=== PATIENT | male | born 1950 | race Caucasian/White ===

== ENCOUNTER → 2016-11-26 | Outpatient (REF) | payer BC ==
[~2016-11-26] MED LIST: /MOXI40TA; /PANT40TA OR; /TAMS4CA OR; ALDA25TA2; ALPHA-LIPOIC ACID; ASPI1TAB PO; AVOD0.5C PO; BABY81CH; COQ-10 PO; COQ-1CAP PO; COZA25TA8 PO; DHEA PO; ECOT325T5; FLAX SEED PO; FLAX10005 PO; FOLI1TAB; INSULIN; INSULIN 70/30 SC; LASI40TA PO; LIPI80TA PO; LOPR50TA OR; LOSA100T36 PO; MAGN1TAB25 PO; METO50TA2 PO; NITR0.4S SL; NITR4TASL SL; NORC5TAB PO; NOVO70VL SC; PEPC1TAB4 PO; PERC5TAB8; PLAV75TA2 OR; SAWPOW; SENN8.6T5; THERGRAN PO; VITA10002 PO; VITAMIN B12 PO; VITMTA PO; [UNRECOGNIZED DRUG - CODE] EXT; [UNRECOGNIZED DRUG - OTHER]; [UNRECOGNIZED DRUG - OTHER]; [UNRECOGNIZED DRUG - OTHER]; [UNRECOGNIZED DRUG - OTHER] PO
[2016-11-26 16:04] LABS: ALBUMIN 3.9 GM/DL (3.2-5.2); ALBUMIN/GLOBULIN RATIO 1.11 (1.00-1.93); ALKALINE PHOSPHATASE 85 U/L (45-117); ALT/SGPT 57 U/L (12-78); ANION GAP 9 MEQ/L (8-16); AST/SGOT 39 U/L (15-37); BILIRUBIN,TOTAL 1.2 MG/DL (0.2-1.0); BLOOD UREA NITROGEN 25 MG/DL (7-18); CALCIUM LEVEL 9.4 MG/DL (8.8-10.2); CARBON DIOXIDE LEVEL 26 MEQ/L (21-32); CHLORIDE LEVEL 104 MEQ/L (98-107); CHOLESTEROL LEVEL 212 MG/DL (<200); CREATININE FOR GFR 1.39 MG/DL (0.70-1.30); GLOMERULAR FILTRATION RATE 54.6 (>49); GLUCOSE, FASTING 278 MG/DL (80-110); POTASSIUM SERUM 4.5 MEQ/L (3.5-5.1); SODIUM LEVEL 139 MEQ/L (136-145); TOTAL PROTEIN 7.4 GM/DL (6.4-8.2); TRIGLYCERIDES LEVEL 485 MG/DL (<150)
== END ==
LOC: M SFHCLACO 11:13
PROVIDERS: ATTEND Physician Assistant
DX: I10 Essential (primary) hypertension (principal); E78.2 Mixed hyperlipidemia; E11.65 Type 2 diabetes mellitus with hyperglycemia; E03.9 Hypothyroidism, unspecified

== ENCOUNTER → 2017-02-04 | Outpatient (REF) | payer BC | LOC: M SFHCLACO 10:50 | PROVIDERS: ATTEND Physician Assistant | DX: I10 Essential (primary) hypertension (principal); E78.2 Mixed hyperlipidemia; E11.65 Type 2 diabetes mellitus with hyperglycemia; E03.9 Hypothyroidism, unspecified; E55.9 Vitamin D deficiency, unspecified ==

== ENCOUNTER → 2017-07-31 | Outpatient (REF) | payer BC ==
[~2017-07-31] MED LIST changes: -METO50TA2 PO; +METO50TA7 PO; +NORC1TAB4 PO; -NORC5TAB PO
[2017-07-31 16:35] LABS: ALBUMIN 3.4 GM/DL (3.2-5.2); ALBUMIN/GLOBULIN RATIO 1.13 (1.00-1.93); BILIRUBIN,TOTAL 0.9 MG/DL (0.2-1.0); CALCIUM LEVEL 9.4 MG/DL (8.8-10.2); CREATININE FOR GFR 1.42 MG/DL (0.70-1.30); GLOMERULAR FILTRATION RATE 53.1 (>49); POTASSIUM SERUM 4.7 MEQ/L (3.5-5.1); TOTAL PROTEIN 6.4 GM/DL (6.4-8.2)
== END ==
LOC: M SFHCLACO 10:30
PROVIDERS: ATTEND Physician Assistant
DX: I10 Essential (primary) hypertension (principal); E78.2 Mixed hyperlipidemia; E11.65 Type 2 diabetes mellitus with hyperglycemia; Z86.19 Personal history of other infectious and parasitic diseases; R10.13 Epigastric pain; E03.9 Hypothyroidism, unspecified; E55.9 Vitamin D deficiency, unspecified

== ENCOUNTER 2017-10-03 03:33 | Inpatient (IN) | payer BC, MEDICARE ==
[~2017-10-03] VITALS: Ht 177.8 cm; Wt 111.2 kg
[2017-10-03] MEDS ORDERED: ASPI1TAB PO (03:53)
[2017-10-03] MEDS ORDERED: OMEP40CA2 PO (03:53)
[2017-10-03] MEDS ORDERED: AMOX500C PO (03:53)
[2017-10-03] MEDS ORDERED: NIAS1TAB PO (03:53)
[2017-10-03] MEDS ORDERED: MORPHINE 4 MG/ML 1ML SYRINGE IV ONE (04:45)
[2017-10-03] MEDS ORDERED: NS 500 ML IV ONE (04:45)
[2017-10-03] MEDS ORDERED: METOCLOPRAMIDE INJ 10MG/2ML VIAL (J2765) IV ONE ×2 (04:45→10:45)
[2017-10-03 04:54] LABS: BASO % 0.2 % (0.0-1.0); EOS % 0.1 % (0.0-3.0); IMMATURE GRANULOCYTE % 0.4 % (0-0); LYMPH # 0.7 10^3/uL (1.5-4.5); LYMPH % 5.7 % (24.0-44.0); MEAN CORPUSCULAR HEMOGLOBIN 29.4 pg (27.0-33.0); MEAN CORPUSCULAR HGB CONC 34.5 g/dl (32.0-36.5); MEAN CORPUSCULAR VOLUME 85.4 fl (80.0-96.0); MONO # 0.8 10^3/uL (0.0-0.8); MONO % 6.2 % (0.0-5.0); NEUTROPHILS # 11.3 10^3/uL (1.8-7.7); NEUTROPHILS % 87.4 % (36.0-66.0); PLATELET COUNT, AUTOMATED 169 10^3/uL (150-450); RED CELL DISTRIBUTION WIDTH 12.6 % (11.5-14.5); WHITE BLOOD COUNT 12.9 10^3/uL (4.0-10.0)
[2017-10-03] MEDS ORDERED: GASTROGRAFIN SOLUTION 30ML (Q9963) PO ONE ×2 (05:00→05:30)
[2017-10-03 05:20] LABS: ALBUMIN 3.8 GM/DL (3.2-5.2); ALBUMIN/GLOBULIN RATIO 1.03 (1.00-1.93); ALKALINE PHOSPHATASE 106 U/L (45-117); ALT/SGPT 35 U/L (12-78); AMYLASE 65 U/L (25-115); ANION GAP 11 MEQ/L (8-16); AST/SGOT 35 U/L (7-37); BILIRUBIN,DIRECT 0.4 MG/DL (0.0-0.2); BLOOD UREA NITROGEN 26 MG/DL (7-18); CALCIUM LEVEL 9.6 MG/DL (8.8-10.2); CARBON DIOXIDE LEVEL 24 MEQ/L (21-32); CHLORIDE LEVEL 101 MEQ/L (98-107); CREATININE FOR GFR 1.39 MG/DL (0.70-1.30); GLOMERULAR FILTRATION RATE 54.4 (>49); GLUCOSE, FASTING 338 MG/DL (80-110); POTASSIUM SERUM 4.8 MEQ/L (3.5-5.1); SODIUM LEVEL 136 MEQ/L (136-145); TOTAL PROTEIN 7.5 GM/DL (6.4-8.2)
[2017-10-03] MEDS ORDERED: HumuLIN R (REGULAR) INSULIN (NovoLIN R) **100U/ML** PER UNIT IV ONE (05:45)
--- NOTE | 2017-10-03 07:10 | REPUSA ---
CLINICAL HISTORY: Abdominal pain. TECHNIQUE: Multiple axial, sagittal and coronal CT images were obtained through the abdomen and pelvi s without administration of IV contrast material. Patient ingested oral contrast. COMMENTS: The liver is of uniform attenuation without mass or defect. There is no intra or extrahepatic biliary ductal dilatation. The spleen is normal. The gallbladder is diffusely thickened containing sludge. T he pancreas is of normal contour and attenuation characteristics. There is no evidence of adrenal mas s. The kidneys are normal in size, shape and configuration. No renal or ureteral calculi are identified. There is no hydroureter or hydronephrosis. There is no evidence for appendicitis. There is no bowel wall thickening. No evidence for small or la rge bowel obstruction. There is no evidence of abdominal ascites or lymphadenopathy. There is no evidence of intrinsic or extrinsic bladder mass. Diffuse thickening of the wall of the bl adder. There is no pelvic ascites or lymphadenopathy. Moderate prostatomegaly. Images of the lung bases show no evidence of pleural or parenchymal mass. There are no pleural effusi ons. Subsegmental atelectatic air space disease in the left lower lobe. The bony structures are free of lytic or blastic lesions. Multilevel degenerative changes are seen in volving the thoracolumbar spine. Scattered calcifications are seen involving the aorta and major branches compatible with atherosclero sis. Bilateral fat containing inguinal hernias without incarceration. Bilateral chronic sacroiliitis or ankylosis. IMPRESSION: Diffusely thickened gallbladder. This is suspicious for mild acute inflammatory changes. Mild irregularity of the hepatic contour. Possibly mild chronic parenchymal liver disease. Prostatomegaly. Diffusely thickened bladder. Thank you for your kind referral of this patient.
[2017-10-03] MEDS ORDERED: MORPHINE 4 MG/ML 1ML SYRINGE IV PRN ×2 (07:45→11:00)
--- NOTE | 2017-10-03 08:35 | REP ---
Clinical: Acute abdominal pain with intractable vomiting . Technique: Vu scale ultrasound using curved array transducer. Findings: Gallbladder wall thickening is appreciated along with moderate amount of sludge and positive sonographic Thomson's sign. No biliary ductal dilatation is appreciated and the common bile duct measures 3.7 mm diameter. The liver and pancreas are normal in contour, size, and echogenicity without focal hepatic or pancreatic lesions identified. The right kidney is normal in reniform shape without hydronephrosis and measures 11.9 x 5.5 x 5.5 cm. No ascites. Visualized portions of the abdominal aorta normal. Impression: Gallbladder findings cannot exclude early acute cholecystitis. Signed by Ignacio Tena MD 10/03/2017 08:27 A
[2017-10-03] MEDS ORDERED: NS 1,000 ML IV SCH (08:52)
[2017-10-03] MEDS ORDERED: LOSARTAN 50 MG TAB PO SCH (09:00)
[2017-10-03] MEDS ORDERED: PIPERACILLIN/TAZOBACTAM SOD 3.375 GM in APPROPRIATE DILUENT 1 EA IV ONE (09:00)
[2017-10-03] MEDS ORDERED: MAGN250T11 PO (09:52)
[2017-10-03] MEDS ORDERED: BETA0.0543 TOP (09:52)
[2017-10-03] MEDS ORDERED: [UNRECOGNIZED DRUG - CODE] TOP (09:54)
[2017-10-03] MEDS ORDERED: LOSARTAN 50 MG TAB PO ONE (10:15)
[2017-10-03] MEDS ORDERED: METOPROLOL TART 25 MG TABLET PO ONE (10:15)
[2017-10-03] MEDS ORDERED: ONDANSETRON 4MG/2ML VIAL (J2405) IV PRN ×2 (10:45→18:15)
[2017-10-03] MEDS: LR 1,000 ML IV SCH ×3 (11:20→23:39)
[2017-10-03] MEDS: MORPHINE 2 MG/ML 1ML SYRINGE IV PRN ×2 (12:09→14:28)
[2017-10-03] MEDS ORDERED: hydrALAZINE INJ 20 MG/ML VIAL IV STA (12:43)
[2017-10-03] MEDS ORDERED: LIDOCAINE 2% INJ 100 MG/5 ML SDV (FOR ANES.) As Ordered ONE (13:40)
[2017-10-03] MEDS ORDERED: PROPOFOL 200 MG/20 ML VIAL As Ordered ONE (13:40)
[2017-10-03] MEDS ORDERED: ROCURONIUM BROMIDE 50 MG/5 ML VIAL/SYRINGE As Ordered ONE ×2 (13:41→16:22)
[2017-10-03] MEDS ORDERED: BUPIVACAINE HCL 0.25% 30 ML VIAL As Ordered ONE (13:42)
[2017-10-03] MEDS ORDERED: MIDAZOLAM INJ 2 MG/2 ML VIAL (J2250) As Ordered ONE ×2 (13:43→17:54)
[2017-10-03] MEDS ORDERED: fentaNYL 250 MCG/5 ML INJECTION (J3010) As Ordered ONE (13:44)
--- NOTE | 2017-10-03 13:53 | REP ---
Clinical: Preoperative assessment . Comparison: 12/28/2015 . Findings: The mediastinum and cardiac silhouette are stable and within normal limits for portable technique. The lung martínez are clear without acute consolidation, effusion, or pneumothorax. Skeletal structures are intact. Impression: No acute cardiopulmonary process appreciated. Signed by Ignacio Tena MD 10/03/2017 01:43 P
--- NOTE | 2017-10-03 14:04 | CR ---
DATE OF CONSULTATION: 10/03/2017 REQUESTING PHYSICIAN: Camron Barrera MD PRIMARY CARE PROVIDER: Merari Nunez PA-C REASON FOR CONSULTATION: Blood pressure control. SUMMARY OF PRESENTATION: Patient developed abdominal distention and pain starting on 10/01 in the evening. It has been increasing. He has had nausea and vomiting. He unfortunately was unable to have a Thanksgiving dinner yesterday, came to the emergency department today and was seen and evaluated and is being admitted to Dr. Barrera's service for acute cholecystitis. He was noted to have an elevated blood pressure, which is why I was called. He does check his blood pressure at home. It normally runs in the systolic 140s, but sometimes it runs up into the 170s, almost to 180. He had had no recent medication changes. He has not taken his medications today. He does follow with Dr. Roberson. He normally sees Karena Fan. He did have a stress test this fall which was reportedly within normal limits. PAST MEDICAL HISTORY: Notable for hypertension, hyperlipidemia, diabetes, coronary artery disease, depression, vitamin D deficiency, anemia, aortic valve repair status post bovine valve, coronary artery bypass grafting (CABG) times two 2014, ankylosing spondylitis, rheumatic arthritis, cardiac stent placement in 2009, knee surgery on the right with nerve damage at age 16, tonsillectomy, adenoidectomy, transurethral resection of prostate (TURP). FAMILY HISTORY: Notable for father at age 76 with heart failure, kidney disease. Other at age 98. SOCIAL HISTORY: Former smoker, remote. Very rare alcohol use. None recently. ALLERGIES: 1. JARDIANCE. 2. VICTOZA. MEDICATIONS: Are listed as: - metoprolol tartrate 35 mg twice a day - losartan 100 mg daily - Lasix 40 mg daily as needed for lower extremity edema. - sublingual nitroglycerin - aspirin 81 mg daily - atorvastatin 80 mg daily - Niaspan - flaxseed oil - magnesium supplement - vitamin D supplement - omeprazole 40 mg daily - 70/30 NovoLog - [place] - coenzyme Q12 - multivitamin REVIEW OF SYSTEMS: Notable for no headache, no visual changes, no runny nose, no sore throat, no neck pain. No cough. No shortness of breath. Chronic back and hip pain, which limits his physical activity. He is able to easily walk up a flight of stairs carrying a basket of laundry without shortness of breath or chest pain. Otherwise, unremarkable. PHYSICAL EXAMINATION: Temperature is 97.2, pulse is most recently 75, respiratory rate 18, blood pressure 233/100, 96% on room air. Intake and output notable for a negative fluid balance of -100. Body mass index (BMI) 35.8. He is awake, appropriately interactive. He does not appear particularly uncomfortable. Head is normocephalic. Sinuses nontender. Pupils equal, round and reactive. Anicteric , not injected. Nasal septum is midline. Mucous membranes are moist. Neck is supple, thick. Breathing is symmetrical. I-to-E ratio is 1:3. No wheezes, rales or rhonchi. There is a systolic ejection murmur at the right sternal border without radiation 3/6. Radial pulses are 2+. Capillary refill is less than 2 seconds. Abdomen is distended, firm, tender. There is no rebound. There is no significant lower extremity edema. White cell count is 12.9, hemoglobin 17.4, platelets 169, BUN 26, creatinine 1.39. Baseline creatinine would appear to be at this level. Total bilirubin is 3, AST 35, ALT 35, total protein 7.5, lipase 295. Urinalysis notable for 3+ protein, 3+ glucose, 2+ blood with 6 red blood cells. Urine culture is pending. Blood culture has not been done. Gallbladder ultrasound shows gallbladder findings could not exclude acute cholecystitis. CT of the abdomen and pelvis shows diffusely thickened gallbladder suspicious for mild acute inflammatory changes, mildly irregular hepatic contour, large prostate, diffusely thickened bladder. There was no EKG or chest x-ray for me to review. My assessment is as follows: This is a 67-year-old with uncontrolled hypertension in the setting of acute cholecystitis, planned for cholecystectomy, hopefully today. My plan will be as follows: 1. Cardiovascular. The patient has received his morning medications. I am not sure how much that will be absorbed. He is noted to have an elevated blood pressure. Will not give further IV beta-selma but will give IV hydralazine and I think that in combination with pain control, will likely control his blood pressure, which is usually much better control. I do not want to control it to closely, due to the fact that he is due for general anesthesia and postoperatively might end up with hypotension. I will attempt to contact the communications director director of community education to see if I can get the results of the stress test done at Dr. Roberson' office. Given this is a holiday weekend that night not be possible. 2. The patient has obstructive sleep apnea. Apparently this has been diagnosed as an outpatient. He is not currently on CPAP or BiPAP. Will require JAVIER monitoring postop. 3. Patient has diabetes. Will need better insulin control. This is poorly controlled currently. Start long acting and short acting postoperatively, depending on his clinical course. He is on 70/30 at home. 4. Patient has a history of coronary artery disease. Will followup stress test. 5. Patient has rheumatic arthritis and anklyosing spondylitis, which may complicate his recovery. 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 6. Patient is status post aortic valve replacement with bovine valve that does not require anticoagulation. 7. Deep vein thrombosis (DVT) prophylaxis. Per the primary service. This patient will be signed out to Dr. Guthrie. Addendum: Case discussed with surgeon and anesthesia. Troponin negative. EKG unchanged. I discussed with Dr. Blancas covering for Dr. Roberson. Stress test done August 2017 normal. Continue perioperative beta selma. JAVIER protocol suggested. Patient optimized for urgent surgery. GAIL
--- NOTE | 2017-10-03 14:24 | HPE ---
DATE OF ADMISSION: 10/03/2017 ADMITTING DIAGNOSIS: Acute cholecystitis. HISTORY OF PRESENT ILLNESS: The patient is a pleasant 67-year-old man who presented to the emergency department at approximately 3:30 in the morning of October 03 complaining of severe upper abdominal pain. The patient reports that he had developed discomfort in the upper midabdomen on FridayOctober 01 probably at about 10:30 in the evening. He developed some nausea and did have some emesis. The pain persisted as a continuous pain in the upper abdomen through October 02. He tolerated a small amount of chicken noodle soup only on the . Pain intensified and became more localized to the right subcostal area. Because of persistent pain with some abdominal distension, he presented to the emergency department for evaluation. He had laboratory studies obtained and subsequently underwent a CT scan of the abdomen and pelvis and an ultrasound of the right upper quadrant. The imaging findings are consistent with acute cholecystitis and I was consulted. The patient is now being admitted for management. ALLERGIES: The patient denies any known drug allergies. CURRENT MEDICATIONS: Include: - Losartan 100 mg by mouth daily - Lasix 40 mg by mouth daily as needed for edema - metoprolol tartrate 75 mg by mouth twice daily - nitroglycerin tablets 0.4 mg sublingually as needed for chest pain The patient reports she has not taken this in the last 3 years. - atorvastatin 80 mg by mouth daily at bedtime - flax seed oil one capsule daily - insulin NovoLog mix 70/30, 30-35 units subcutaneously every morning, 70/30 insulin 15 units subcutaneously daily with lunch and 40 units of 70/30 insulin subcutaneously every evening - [place] one tablet twice daily as needed for pain - multivitamin daily - Co-Q10 capsules one capsule every morning - aspirin 81 mg by mouth twice daily - niacin 500 mg by mouth daily at bedtime - omeprazole 40 mg by mouth daily - magnesium oxide 500 mg by mouth daily - betamethasone cream topically to his hands twice daily. MEDICAL HISTORY: Significant for atherosclerotic coronary artery disease. He reports that he had several stents placed back in January 2010. In November 2014 he underwent an aortic valve replacement with a bovine valve and had a two-vessel coronary artery bypass grafting at that time. He reports that he has had no chest pain or cardiac symptoms since then. He follows with Dr. Roberson and sees usually Karena Fan in the office. The patient has diabetes mellitus for which he is on insulin. He reports that he has been trying to keep his blood sugars below 180 and that they have usually been around 140 in the mornings. He has benign prostatic hyperplasia and reports having had a transurethral resection of the prostate (TURP) within the last year or so. He has ankylosing spondylitis and has some back discomfort and is retired on disability. He has a history of upper cholesterolemia and hypertension for which he is on treatment. He is a former smoker. SURGICAL HISTORY: Significant for his two-vessel bypass and his aortic valve replacement. He has had stents prior to his bypass and has undergone a TURP. SOCIAL HISTORY: The patient does drink alcohol occasionally. He is a former smoker of cigarettes. REVIEW OF SYSTEMS: Reveals no history of recent chest pain or palpitations or shortness of breath. He has had no cough, wheezing or sputum production. He denies any history of deep venous thrombosis (DVT) or pulmonary embolus. He does have some back discomfort for which he takes occasional [place]. He does have some voiding issues and has had a TURP. He reports that this helped for some time but he is still not voiding normally. He denies any history of transient ischemic attack (TIA), seizure or stroke. Remainder of review of systems is unremarkable. PHYSICAL EXAMINATION: The patient is lying quietly on the stretcher in the emergency department. His most recent vital signs: Afebrile with a pulse in the 60s. His most recent blood pressure was 231/99. His O2 saturations are normal on room air. He is alert, oriented and cooperative. He does complain of pain in his right subcostal area in particular and feels quite bloated. Skin: Is warm and dry. Sclerae are anicteric. The neck is supple. He has an auscultable noise in the left neck which on further examination seems to be a transmitted cardiac systolic murmur. There are no palpable masses. Heart: Exam shows a regular rhythm with a roughly 3/6 systolic murmur along the left side of the sternum which radiates up into the neck. Lungs are clear to auscultation bilaterally. The abdomen is mildly obese. He does have a few bowel sounds present. There is no tympany to percussion. There is moderate to marked tenderness to percussion in the right subcostal area in particular at about the midclavicular line. There is marked tenderness to palpation in this area. The abdomen is otherwise soft and without palpable mass. He does have some referred tenderness to the right upper quadrant from palpation in other quadrants. Extremities: Show no peripheral edema. He has palpable radial and posterior tibial pulses. His laboratory studies show white count of 12.9 with a hemoglobin of 17, hematocrit of 50 and a platelet count of 169,000. Differential count shows 87% neutrophils, 6% lymphocytes and 6% monocytes. Chemistry profile shows a sodium 136, potassium 4.8, chloride 101, CO2 of 24, BUN of 26, creatinine 1.4 and a glucose of 338. His total bilirubin is elevated at 3.0 but his transaminases and alkaline phosphatase are normal and his amylase and lipase are normal as well. Urinalysis shows specific gravity of 1.027 with 3+ protein, 3+ glucose, 1+ ketones and his microscopic shows three white cells and six red cells per high-power field. I reviewed his CT imaging and his ultrasound imaging personally. Both studies show a prominent gallbladder with wall thickening. There is a suggestion of some pericholecystic edema on the CT in particular. The ultrasound showed wall thickening of 6 mm. There are some small densities identified within the gallbladder by ultrasound suggestive of sludge or small stones. IMPRESSION: 1. Acute cholecystitis secondary to cholelithiasis. 2. Diabetes mellitus insulin requiring. 3. Atherosclerotic coronary artery disease status post stenting and bypass. 4. Status post aortic valve replacement with a bovine valve. 5. Hypertension. 6. Hypercholesterolemia. 7. Benign prostatic hyperplasia status post TURP. 8. Rheumatoid arthritis and ankylosing spondylitis with back pain. PLAN: Patient has a history and imaging studies consistent with acute cholecystitis secondary to cholelithiasis. He is now into day two of his persistent symptoms. I have recommended that we admit him to the hospital for management with intravenous antibiotics and cholecystectomy. His blood pressure is significantly elevated in the emergency department and his blood sugars are also somewhat out of control. I will consult Dr. Haque of the hospitalist service and I have already spoken with him requesting his evaluation of the patient to optimize him for surgery. The patient will be provided with analgesics as necessary. He will be kept on IV maintenance fluid and will be kept n.p.o. for now. If we can optimize his medical status today, then I would anticipate proceeding with his cholecystectomy today but it could be delayed until tomorrow if more time is necessary to optimize his cardiac and endocrine status. Thromboembolic deterrent stockings (TEDS) and sequential will be utilized for now for deep venous thrombosis (DVT) prophylaxis. We will monitor his urine output and his weight while he is here.
[2017-10-03] MEDS ORDERED: LABETALOL HCL 100 MG/20 ML VIAL As Ordered ONE (15:16)
[2017-10-03] MEDS ORDERED: LIDOCAINE 2% JELLY 30 ML As Ordered ONE (15:17)
[2017-10-03] MEDS ORDERED: ZOSYN 3.375 GM VIAL (J2543) As Ordered ONE (15:31)
[2017-10-03] MEDS: PIPERACILLIN/TAZOBACTAM SOD 3.375 GM in APPROPRIATE DILUENT 1 EA IV SCH ×2 (15:41→20:44)
--- NOTE | 2017-10-03 15:43 | ECGEPIP ---
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
[2017-10-03] MEDS ORDERED: METOCLOPRAMIDE INJ 10MG/2ML VIAL (J2765) As Ordered ONE (16:21)
[2017-10-03] MEDS ORDERED: ONDANSETRON 4MG/2ML VIAL (J2405) As Ordered ONE (16:21)
[2017-10-03] MEDS ORDERED: GLYCOPYRROLATE INJ 0.2 MG/ML 2 ML VIAL As Ordered ONE (16:31)
[2017-10-03] MEDS ORDERED: NEOSTIGMINE 10 MG/10 ML VIAL (J2710) As Ordered ONE (16:31)
[2017-10-03] MEDS: HumaLOG INSULIN (NovoLOG) PER UNIT SC SCH ×2 (17:30→20:45)
[2017-10-03] MEDS: MIDAZOLAM INJ 2 MG/2 ML VIAL (J2250) IV PRN ×2 (18:08→18:30)
[2017-10-03] MEDS ORDERED: HumaLOG INSULIN (NovoLOG) PER UNIT As Ordered ONE (18:11)
[2017-10-03] MEDS ORDERED: LR 1,000 ML IV SCH (18:15)
[2017-10-03] MEDS ORDERED: fentaNYL 100 MCG/2 ML INJECTION (J3010) IV PRN (18:15)
[2017-10-03] MEDS ORDERED: PERCOCET 5MG/325MG TAB PO PRN (18:15)
[2017-10-03] MEDS ORDERED: HYDROmorphone HCL 1 MG/ML SYRINGE (J1170) IV PRN (18:15)
[2017-10-03] MEDS ORDERED: KETOROLAC 30 MG/ML VIAL (J1885) As Ordered ONE (18:36)
[2017-10-03] MEDS: KETOROLAC 30 MG/ML VIAL (J1885) IV PRN (18:42)
[2017-10-03 19:10] VITALS: BP 145/65
[2017-10-03 19:40] VITALS: BP 136/63
[2017-10-03 20:30] VITALS: BP 145/66
[2017-10-03] MEDS: METOPROLOL TART 25 MG TABLET PO SCH (20:44)
[2017-10-03] MEDS: ATORVASTATIN 20 MG TAB PO SCH (20:45)
[2017-10-03] MEDS: OMEPRAZOLE 20 MG CAP PO SCH (20:45)
[2017-10-03] MEDS: ASPIRIN 81 MG ENTERIC TAB PO SCH (20:45)
[2017-10-03 21:30] VITALS: BP 139/63
[2017-10-03 22:30] VITALS: BP 130/61
[2017-10-03 23:30] VITALS: BP 134/60
[2017-10-04] VITALS (10 sets, daily range): BP systolic 133–187; BP diastolic 65–90
[2017-10-04] MEDS: PIPERACILLIN/TAZOBACTAM SOD 3.375 GM in APPROPRIATE DILUENT 1 EA IV SCH ×4 (03:02→20:38)
[2017-10-04] MEDS: KETOROLAC 30 MG/ML VIAL (J1885) IV PRN (04:34)
[2017-10-04 06:15] LABS: BASO % 0.3 % (0.0-1.0); EOS % 0.1 % (0.0-3.0); IMMATURE GRANULOCYTE % 0.4 % (0-0); LYMPH # 1.7 10^3/uL (1.5-4.5); LYMPH % 15.2 % (24.0-44.0); MEAN CORPUSCULAR HEMOGLOBIN 29.5 pg (27.0-33.0); MEAN CORPUSCULAR HGB CONC 33.9 g/dl (32.0-36.5); MEAN CORPUSCULAR VOLUME 86.8 fl (80.0-96.0); MONO # 1.1 10^3/uL (0.0-0.8); MONO % 10.1 % (0.0-5.0); NEUTROPHILS # 8.3 10^3/uL (1.8-7.7); NEUTROPHILS % 73.9 % (36.0-66.0); PLATELET COUNT, AUTOMATED 111 10^3/uL (150-450); WHITE BLOOD COUNT 11.2 10^3/uL (4.0-10.0)
[2017-10-04 06:36] LABS: ALBUMIN 2.3 GM/DL (3.2-5.2); ALBUMIN/GLOBULIN RATIO 0.72 (1.00-1.93); BILIRUBIN,DIRECT 0.3 MG/DL (0.0-0.2); BILIRUBIN,TOTAL 2.7 MG/DL (0.2-1.0); CALCIUM LEVEL 8.9 MG/DL (8.8-10.2); CREATININE FOR GFR 2.16 MG/DL (0.70-1.30); GLOMERULAR FILTRATION RATE 32.7 (>49); POTASSIUM SERUM 4.5 MEQ/L (3.5-5.1); TOTAL PROTEIN 5.5 GM/DL (6.4-8.2)
[2017-10-04] MEDS ORDERED: HumaLOG INSULIN (NovoLOG) PER UNIT SC SCH (07:30)
[2017-10-04] MEDS: HumaLOG INSULIN (NovoLOG) PER UNIT SC SCH ×4 (07:30→20:19)
[2017-10-04] MEDS: OMEPRAZOLE 20 MG CAP PO SCH (08:55)
[2017-10-04] MEDS: LOSARTAN 50 MG TAB PO SCH (08:55)
[2017-10-04] MEDS: ASPIRIN 81 MG ENTERIC TAB PO SCH ×2 (08:55→20:38)
[2017-10-04] MEDS: METOPROLOL TART 25 MG TABLET PO SCH ×2 (08:56→20:38)
[2017-10-04] MEDS: LR 1,000 ML IV SCH ×2 (08:58→20:38)
[2017-10-04] MEDS ORDERED: NORCO, ANEXSIA 5/325MG TABLET (HYDROcodone/ACETAMINOPHEN) PO PRN (11:45)
[2017-10-04] MEDS ORDERED: ACETAMINOPHEN TAB 650MG DOSE (2X325MG) PO PRN (11:45)
--- NOTE | 2017-10-04 16:54 | IPN ---
DATE: 10/04/2017 The patient is now postoperative day #1 from a laparoscopic cholecystectomy for acute gangrenous cholecystitis. He has clearly improved significantly with a marked decrease in his discomfort. He is sitting up in a chair at the bedside and complains only of some soreness in the area of the drain site. He has no nausea or vomiting and has tolerated some clear liquids this morning. Vital signs show that he has been afebrile since surgery. His pulse today is in the 70s with a blood pressure that is most recently 168/78. Room air saturations are normal. Intake and output shows that yesterday he had 2700 in with 800 out. His urine output so far today is recorded as 350 and his drain had 100 out yesterday with 25 this morning. Physical examination reveals the patient to be comfortable in appearance sitting up in the chair at the bedside. He is alert and oriented. Sclerae are anicteric. Skin is warm and dry. Heart exam shows a regular rhythm with the murmur as noted preoperatively. The abdomen is somewhat protuberant but soft. He has bowel sounds that are present in all four quadrants. His drain has a small amount of serosanguineous fluid. Laboratory studies today show a white count of 11 with a differential showing 74 % neutrophils, 15% lymphocytes and 10 monocytes. Hemoglobin is 13 with a hematocrit of 38. Chemistry profile shows that his BUN and creatinine are both up somewhat today to 40 and 2.16. Glucose is 226 and his electrolytes are normal. Total protein is 5.5 with an albumin of 2.3. IMPRESSION: Doing well now postoperative day #1 from laparoscopic cholecystectomy for acute gangrenous cholecystitis. His blood pressure is under much better control on his usual blood pressure medications today. He has markedly diminished discomfort. PLAN: The patient will be continued on Zosyn today. His drain has only a small amount of serosanguineous fluid at this point and I anticipate we will be able to remove this in the morning. I will continue him on IV fluids, though at a decreased rate, and allow him to take a consistent carbohydrate diet today since he has tolerated some clear liquids. I will repeat a CPA in the morning to followup on his renal function and his liver function tests as well. GAIL
[2017-10-04] MEDS: ATORVASTATIN 20 MG TAB PO SCH (20:37)
[2017-10-05 02:00] VITALS: BP 172/92
[2017-10-05] MEDS: PIPERACILLIN/TAZOBACTAM SOD 3.375 GM in APPROPRIATE DILUENT 1 EA IV SCH ×3 (02:58→15:00)
[2017-10-05 03:04] VITALS: BP 172/82
[2017-10-05] MEDS ORDERED: METOPROLOL TART 50 MG TAB PO ONE (03:15)
[2017-10-05 06:00] VITALS: BP 170/78
--- NOTE | 2017-10-05 07:07 | RO ---
DATE OF PROCEDURE: 10/03/2017 PREOPERATIVE DIAGNOSIS: Acute cholecystitis. POSTOPERATIVE DIAGNOSIS: Gangrenous cholecystitis. PROCEDURE PERFORMED: Laparoscopic cholecystectomy. SURGEON: Dr. Camron Barrera ANESTHESIA: General. INDICATIONS FOR THE PROCEDURE: The patient is a 67-year-old man with a history of insulin-requiring diabetes mellitus and coronary artery disease status post aortic valve replacement who presented to the emergency room (ER) with a roughly 1-1/2-day history of severe upper abdominal pain. He had a slight elevation of his white blood cell count with marked tenderness in his right upper quadrant. CT scan and ultrasound both showed findings consistent with acute cholecystitis. He is now for a laparoscopic cholecystectomy. He has been quite hypertensive in the emergency department and the hospitalist was consulted to assist in management. OPERATIVE PROCEDURE: The patient was placed under general endotracheal anesthesia. The patient's abdomen was prepped and draped in a sterile fashion. 0.25% Marcaine was infiltrated at each of the trocar sites. A short supraumbilical midline incision was made and deepened through the subcutaneous tissues and the fascia under direct vision. A Yen cannula was inserted and the abdomen was inflated with carbon dioxide gas. The laparoscope was placed. Initial examination showed omentum adherent up along the edge of the liver. The patient was tilted to a reverse Trendelenburg position and rolled to the left. A 5 mm trocar was placed in the left upper quadrant. A grasper was inserted and the omentum was pulled down off of the right lobe of the liver exposing a gallbladder that was tensely distended and clearly gangrenous. There was some fibrinous exudate about the gallbladder as well as some acute adhesions to the surrounding omentum. Two more 5 mm trocars were placed in the right upper quadrant. The adhesions to the gallbladder were lysed using the hook cautery and the omentum was pulled down away from the liver. The gallbladder was tensely distended and I attempted to aspirate this using an aspirating needle without success. There was a small amount of very dark fluid that oozed from the puncture site, so I elected to create an opening using the hook cautery through which I could aspirate the contents. There was clearly some pressure within the gallbladder as when the puncture was created there was some spraying of fluid toward the left side of the abdomen. The suction electrical engineering technician was used to clear the gallbladder of all of its fluid contents and the spilled fluid was then irrigated and suctioned from the abdomen. The gallbladder was grasped and elevated. There was a lot of edema and inflammatory changes surrounding the gallbladder. The peritoneum was opened around the gallbladder neck region. The cholecystic artery was identified and freed and this was doubly clipped and divided. As dissection proceeded, it was clear that the gallbladder neck extended slightly deeper past the point where the artery had been identified. These tissues were opened and the cystic duct was then identified. The cystic duct was clipped and divided. The gallbladder was then dissected free from the gallbladder bed using a combination of blunt and cautery dissection. The gallbladder was opened in the course of dissection through the necrotic tissue around the neck of the gallbladder, but the wall of the gallbladder was completely removed. The gallbladder was placed in an Endopouch. The right upper quadrant was then copiously irrigated to remove any spilled fluid. I elected to place a drain in the subhepatic space. After ensuring that hemostasis was complete, a 19-Pashto Fawad drain was inserted through the Yen cannula and directed out through the lateral right upper quadrant trocar site. This was placed across the subhepatic space. The patient was returned to a flat position. All irrigation was removed from the abdomen. The abdomen was deflated and the remaining trocars were removed. The gallbladder was recovered through the Yen site and sent for permanent pathology. The drain was sutured to the skin with a #2-0 silk and this site was then covered with a CHG OpSite. The drain was connected to a Gerald-Scott bulb. The fascia at the Yen site was closed with interrupted simple sutures of #2-0 Vicryl and the skin incisions were then closed with buried #5-0 Vicryl and Steri-Strips. Light dressings were applied. The patient tolerated the procedure well without apparent complication. He was awakened in the operating room, extubated and moved to the recovery room in stable condition. GAIL
[2017-10-05 07:23] LABS: ALBUMIN 2.2 GM/DL (3.2-5.2); ALBUMIN/GLOBULIN RATIO 0.59 (1.00-1.93); BILIRUBIN,TOTAL 2.3 MG/DL (0.2-1.0); CALCIUM LEVEL 9.1 MG/DL (8.8-10.2); CREATININE FOR GFR 2.27 MG/DL (0.70-1.30); GLOMERULAR FILTRATION RATE 30.9 (>49); TOTAL PROTEIN 5.9 GM/DL (6.4-8.2)
[2017-10-05] MEDS: LOSARTAN 50 MG TAB PO SCH (08:20)
[2017-10-05] MEDS: OMEPRAZOLE 20 MG CAP PO SCH (08:20)
[2017-10-05] MEDS: ASPIRIN 81 MG ENTERIC TAB PO SCH (08:20)
[2017-10-05 08:21] VITALS: BP 170/78
[2017-10-05] MEDS: METOPROLOL TART 25 MG TABLET PO SCH (08:21)
[2017-10-05] MEDS: HumaLOG INSULIN (NovoLOG) PER UNIT SC SCH ×2 (08:22→12:30)
[2017-10-05 09:10] LABS: BASO # 0.1 10^3/uL (0.0-0.2); BASO % 0.9 % (0.0-1.0); EOS # 0.3 10^3/uL (0.0-0.50); EOS % 3.7 % (0.0-3.0); IMMATURE GRANULOCYTE % 0.6 % (0-0); LYMPH # 1.3 10^3/uL (1.5-4.5); LYMPH % 16.4 % (24.0-44.0); MEAN CORPUSCULAR HEMOGLOBIN 29.3 pg (27.0-33.0); MEAN CORPUSCULAR HGB CONC 33.6 g/dl (32.0-36.5); MEAN CORPUSCULAR VOLUME 87.1 fl (80.0-96.0); MONO # 0.7 10^3/uL (0.0-0.8); MONO % 8.7 % (0.0-5.0); NEUTROPHILS # 5.4 10^3/uL (1.8-7.7); NEUTROPHILS % 69.7 % (36.0-66.0); PLATELET COUNT, AUTOMATED 116 10^3/uL (150-450); RED CELL DISTRIBUTION WIDTH 12.9 % (11.5-14.5); WHITE BLOOD COUNT 7.8 10^3/uL (4.0-10.0)
[2017-10-05 09:37] LABS: ALBUMIN 2.4 GM/DL (3.2-5.2); ALBUMIN/GLOBULIN RATIO 0.77 (1.00-1.93); BILIRUBIN,TOTAL 2.4 MG/DL (0.2-1.0); CALCIUM LEVEL 8.9 MG/DL (8.8-10.2); CREATININE FOR GFR 2.15 MG/DL (0.70-1.30); GLOMERULAR FILTRATION RATE 32.9 (>49); POTASSIUM SERUM 4.1 MEQ/L (3.5-5.1); TOTAL PROTEIN 5.5 GM/DL (6.4-8.2)
[2017-10-05 10:00] VITALS: BP 170/80
[2017-10-05 14:00] VITALS: BP 172/82
[2017-10-05] MEDS ORDERED: CIPR500T3 PO (16:49)
[2017-10-05] MEDS ORDERED: METR1TAB66 PO (16:49)
--- NOTE | 2017-10-05 17:45 | IPN ---
DATE: 10/05/2017 HISTORY: The patient is now day two postoperative from a laparoscopic cholecystectomy for gangrenous cholecystitis. He is doing extremely well. He is taking no pain medications and reports only a little soreness in the area of his drain. He is tolerating regular food with no nausea or vomiting. VITAL SIGNS: The patient has been afebrile over the last 24 hours. His blood pressure remains at approximately 170 systolic and his pulse is in the 70s. Intake and output are 3460 in, 1665 out yesterday with 65 out the drain yesterday and only 40 today. PHYSICAL EXAMINATION: The patient is lying comfortably on the hospital bed. He is alert and oriented. Skin is warm and dry. Heart examination shows a regular rhythm. The abdomen remains mildly obese. His drain has a little bit of old bloody fluid within the tubing and reservoir but no signs of bile staining. His other three incisions are all clean and healing well. The abdomen is soft and nontender to palpation. LABORATORY STUDIES: Show his white count today is down to normal at 7.8 with a differential showing 70% neutrophils, 16% lymphocytes and 9% monocytes. His hemoglobin is 13 with a hematocrit of 39. Chemistry profile shows normal electrolytes with a BUN of 45 and a creatinine of 2.15. The creatinine is down slightly from yesterday. His total protein is 5.5 with an albumin of 2.4 and his total bilirubin remains at 2.4. Fingerstick blood sugars have ranged between 185 and 411 over the last 24 hours or so. IMPRESSION: 1. Doing well status post gangrenous cholecystitis. 2. Diabetes mellitus with blood sugars still suboptimal, but he has not yet resumed his usual insulin dosing. 3. Hypertension, improved but still not optimally controlled. PLAN: The patient and I discussed management at this point. I believe he is safe to be discharged. We will remove his drain. I advised him that he can shower tomorrow and should do local wound care to the drain site until this is healed. We agreed that he will resume his nightly insulin tonight and followup with blood sugars tomorrow and resume his usual dosing. He will continue his regular blood pressure medications. I suspect he is slightly fluid overloaded based on his intake and output records and this would follow from the serious infection with the gangrenous cholecystitis and should resolve over the next few days. He can certainly take a dose of his Lasix that he has available to take when he develops any edema. He does not appear to require any pain medications. I did advise him that I would like to continue him on antibiotics and I will send in prescriptions for Cipro and Flagyl for five days worth of treatment. He will be scheduled a followup appointment in a week to 10 days and should call if there are any problems.
== END 2017-10-05 17:20 | disposition home or self-care (01) | DRG 263 ==
LOC: M ED 03:33 → M ED INP 10:35 → M MSPAV 19:06
PROVIDERS: ADMIT Surgery; ATTEND Surgery
PROC: 0FT44ZZ Resection of Gallbladder, Percutaneous Endoscopic Approach (ICD-10-PCS; principal; 2017-10-03 13:22)
DX: K81.0 Acute cholecystitis (principal); Z79.899 Other long term (current) drug therapy; Z79.4 Long term (current) use of insulin; I25.10 Atherosclerotic heart disease of native coronary artery without angina pectoris; Z95.2 Presence of prosthetic heart valve; E11.9 Type 2 diabetes mellitus without complications; N40.0 Benign prostatic hyperplasia without lower urinary tract symptoms; I10 Essential (primary) hypertension; M45.9 Ankylosing spondylitis of unspecified sites in spine; Z87.891 Personal history of nicotine dependence; E78.00 Pure hypercholesterolemia, unspecified; M06.9 Rheumatoid arthritis, unspecified; E55.9 Vitamin D deficiency, unspecified; G47.33 Obstructive sleep apnea (adult) (pediatric)

== ENCOUNTER → 2017-12-02 | Outpatient (REF) | payer BC ==
[2017-12-02 16:16] LABS: ALBUMIN 3.7 GM/DL (3.2-5.2); ALBUMIN/GLOBULIN RATIO 1.09 (1.00-1.93); ALKALINE PHOSPHATASE 110 U/L (45-117); ALT/SGPT 55 U/L (12-78); ANION GAP 7 MEQ/L (8-16); AST/SGOT 34 U/L (7-37); BILIRUBIN,TOTAL 1.3 MG/DL (0.2-1.0); BLOOD UREA NITROGEN 26 MG/DL (7-18); CALCIUM LEVEL 9.6 MG/DL (8.8-10.2); CARBON DIOXIDE LEVEL 28 MEQ/L (21-32); CHLORIDE LEVEL 101 MEQ/L (98-107); CHOLESTEROL LEVEL 176 MG/DL (<200); CHOLESTEROL RISK RATIO 5.866 (<5); CREATININE FOR GFR 1.55 MG/DL (0.70-1.30); GLUCOSE, FASTING 264 MG/DL (70-100); HDL CHOLESTEROL 30 MG/DL (>40); NON-HDL-C 146 MG/DL; POTASSIUM SERUM 4.7 MEQ/L (3.5-5.1); SODIUM LEVEL 136 MEQ/L (136-145); TOTAL PROTEIN 7.1 GM/DL (6.4-8.2); TRIGLYCERIDES LEVEL 411 MG/DL (<150)
[2017-12-02 16:20] LABS: ESTIMATED AVERAGE GLUCOSE 217 MG/DL (60-110); HEMOGLOBIN A1c 9.2 %
[2017-12-02 19:03] LABS: TOTAL 25(OH) VITAMIN D 27.4 NG/ML (30.0-100.0)
== END ==
LOC: M SFHCLACO 09:30
DX: I10 Essential (primary) hypertension (principal); E78.2 Mixed hyperlipidemia; E11.65 Type 2 diabetes mellitus with hyperglycemia; E03.9 Hypothyroidism, unspecified; E55.9 Vitamin D deficiency, unspecified
CPT/HCPCS: 84443

== ENCOUNTER → 2018-04-07 | Outpatient (REF) | payer BC ==
[2018-04-07 15:24] LABS: TOTAL 25(OH) VITAMIN D 28.7 NG/ML (30.0-100.0)
[2018-04-07 15:39] LABS: ALBUMIN 3.6 GM/DL (3.2-5.2); ALBUMIN/GLOBULIN RATIO 1.09 (1.00-1.93); ALKALINE PHOSPHATASE 98 U/L (45-117); ALT/SGPT 31 U/L (12-78); ANION GAP 5 MEQ/L (8-16); AST/SGOT 28 U/L (7-37); BILIRUBIN,TOTAL 1.3 MG/DL (0.2-1.0); BLOOD UREA NITROGEN 21 MG/DL (7-18); CALCIUM LEVEL 9.5 MG/DL (8.8-10.2); CARBON DIOXIDE LEVEL 26 MEQ/L (21-32); CHLORIDE LEVEL 108 MEQ/L (98-107); CHOLESTEROL LEVEL 114 MG/DL (<200); CHOLESTEROL RISK RATIO 4.384 (<5); CREATININE FOR GFR 1.62 MG/DL (0.70-1.30); GLOMERULAR FILTRATION RATE 45.5 (>49); GLUCOSE, FASTING 194 MG/DL (70-100); HDL CHOLESTEROL 26 MG/DL (>40); LDL CHOLESTEROL 37.8 MG/DL (<100); NON-HDL-C 88 MG/DL; POTASSIUM SERUM 4.5 MEQ/L (3.5-5.1); SODIUM LEVEL 139 MEQ/L (136-145); TOTAL PROTEIN 6.9 GM/DL (6.4-8.2); TRIGLYCERIDES LEVEL 251 MG/DL (<150)
== END ==
LOC: M SFHCLACO 10:21
DX: I10 Essential (primary) hypertension (principal); E78.2 Mixed hyperlipidemia; E03.9 Hypothyroidism, unspecified; E55.9 Vitamin D deficiency, unspecified
CPT/HCPCS: 84443

== ENCOUNTER → 2018-04-28 | Outpatient (REF) | payer BC ==
[2018-04-28 19:04] LABS: ESTIMATED AVERAGE GLUCOSE 203 MG/DL (60-110); HEMOGLOBIN A1c 8.7 %
== END ==
LOC: M SFHCLACO 10:22
DX: E11.9 Type 2 diabetes mellitus without complications (principal)
CPT/HCPCS: 83036

== ENCOUNTER → 2018-06-10 | Outpatient (REF) | payer BC ==
[2018-06-10 18:16] LABS: TOTAL PROTEIN,RANDOM URINE 108.3 MG/DL (0.0-12.0)
== END ==
LOC: M LAB REF 17:03
DX: N18.3 Chronic kidney disease, stage 3 (moderate) (principal); E11.22 Type 2 diabetes mellitus with diabetic chronic kidney disease
CPT/HCPCS: 84156

== ENCOUNTER → 2018-06-16 | Outpatient (CLI) | payer BC | LOC: M RAD 12:10 | DX: N28.1 Cyst of kidney, acquired (principal); N40.0 Benign prostatic hyperplasia without lower urinary tract symptoms; E11.22 Type 2 diabetes mellitus with diabetic chronic kidney disease; N18.3 Chronic kidney disease, stage 3 (moderate) | CPT/HCPCS: 76775 ==

== ENCOUNTER → 2018-09-10 | Outpatient (REF) | payer BC ==
[2018-09-10 14:31] LABS: TOTAL PROTEIN,RANDOM URINE 96.5 MG/DL (0.0-12.0)
== END ==
LOC: M LAB REF 13:39
DX: N18.3 Chronic kidney disease, stage 3 (moderate) (principal); E11.22 Type 2 diabetes mellitus with diabetic chronic kidney disease
CPT/HCPCS: 84156

== ENCOUNTER → 2020-04-19 | Outpatient (CLI) | payer MEDICARE, OTHER ==
[~2020-04-19] MED LIST changes: -/MOXI40TA; -/PANT40TA OR; -/TAMS4CA OR; +AMOX500C PO; -ASPI1TAB PO; +ASPI81TA26 PO; +AVEL1TAB2; +BETA0.0543 TOP; +CIPR500T3 PO; +CYAN100049 PO; +FLOM0.4C39 OR; +LASI40TA9 PO; -LOSA100T36 PO; +LOSA100T50 PO; -MAGN1TAB25 PO; +MAGN1TAB26 PO; +MAGN250T11 PO; +METR-265 PO; +NIAS500T23 PO; -NORC1TAB4 PO; +NORC1TAB7 PO; +OMEP40CA97 PO; -PEPC1TAB4 PO; +PEPC1TAB5 PO; +PROT1TAB2 OR; -VITA10002 PO; +[UNRECOGNIZED DRUG - CODE] TOP
--- NOTE | 2020-04-19 16:13 | REPPI ---
Three views thoracic spine: 04/19/2020. Indication: Thoracic pain. Comparison: 10/03/2017. Findings: The patient is status post median sternotomy. Small nodule within the left lung remain stable most consistent with a granuloma. Sequelae of ankylosing spondylitis is noted within the spine without acute fracture. No lytic or blastic lesions within the thoracic spine are detected. Alignments is essentially anatomic. Impression: No acute fracture. Electronically Signed by Semaj Mixon DO 04/19/2020 04:05 P
--- NOTE | 2020-04-19 16:16 | REPPI ---
Single view pelvis: 04/19/2020. Indication: Pelvic pain. Comparison: 10/03/2017. Findings: There is no acute fracture, subluxation or dislocation. Osseous alignment is anatomic. No acute soft tissue abnormalities are detected. No significant sacroiliitis is noted by this technique. Impression: No acute pathology detected. Electronically Signed by Semaj Mixon DO 04/19/2020 04:08 P
--- NOTE | 2020-04-19 16:28 | REPPI ---
REASON: History of ankylosing spondylitis. COMPARISON: 03/04/2016 Once again, there is a bamboo spine. This is consistent with ankylosing spondylitis. The appearance is unchanged from the prior exam. IMPRESSION: Complete syndesmophyte formation seen throughout the lumbar spine and imaged portions of the thoracic spine with a bamboo spine appearance consistent with ankylosing spondylitis without evidence of significant change compared to the prior exam. Electronically Signed by Derik Bañuelos DO 04/19/2020 05:06 P
[2020-04-19 17:12] LABS: BASO # 0.1 10^3/uL (0.0-0.2); BASO % 1.2 % (0.0-1.0); EOS # 0.2 10^3/uL (0.0-0.5); EOS % 3.6 % (0.0-3.0); HEMOGLOBIN 13.1 g/dl (13.5-17.5); LYMPH # 1.4 10^3/uL (1.5-5.0); LYMPH % 24.3 % (24.0-44.0); MEAN CORPUSCULAR HEMOGLOBIN 28.4 pg (27.0-33.0); MEAN CORPUSCULAR HGB CONC 32.8 g/dl (32.0-36.5); MEAN CORPUSCULAR VOLUME 86.8 fl (80.0-96.0); MONO # 0.5 10^3/uL (0.0-0.8); MONO % 8.5 % (0.0-5.0); NEUTROPHILS # 3.5 10^3/uL (1.5-8.5); NEUTROPHILS % 62.2 % (36.0-66.0); PLATELET COUNT, AUTOMATED 148 10^3/uL (150-450); RED BLOOD COUNT 4.61 10^6/uL (4.30-6.10); WHITE BLOOD COUNT 5.6 10^3/uL (4.0-10.0)
[2020-04-19 17:33] LABS: ALBUMIN 3.6 GM/DL (3.2-5.2); ALT/SGPT 43 U/L (12-78); BILIRUBIN,TOTAL 1.4 MG/DL (0.2-1.0); BLOOD UREA NITROGEN 29 MG/DL (7-18); C REACTIVE PROTEIN QUANTITATIV < 0.30 MG/DL (0.00-0.30); CALCIUM LEVEL 10.1 MG/DL (8.8-10.2); CARBON DIOXIDE LEVEL 25 MEQ/L (21-32); CHLORIDE LEVEL 105 MEQ/L (98-107); CREATININE FOR GFR 1.65 MG/DL (0.70-1.30); GLOMERULAR FILTRATION RATE 44.3 (>49); GLUCOSE, FASTING 244 MG/DL (70-100); POTASSIUM SERUM 5.1 MEQ/L (3.5-5.1); RHEUMATOID FACTOR QUANT < 10.0 IU/ML (<15.0); SODIUM LEVEL 137 MEQ/L (136-145)
[2020-04-19 17:37] LABS: ERYTHROCYTE SEDIMENTATION RATE 31 mm/hr (0-20)
[2020-04-21 09:18] LABS: HEPATITIS B SURFACE ANTIGEN NEGATIVE (NEGATIVE)
[2020-04-21 09:46] LABS: HEPATITIS C VIRUS ABY INDEX 0.2 INDEX (<0.8)
[2020-04-25 15:07] LABS: CYCLIC CITRULLINATED PEPTIDE 7 units (0-19); HEPATITIS B CORE ANTIBODY IGG Negative (Negative); HLA-B27 Positive (.)
== END ==
LOC: M PLAIMG 14:09
PROVIDERS: ATTEND Internal Medicine
DX: M45.7 Ankylosing spondylitis of lumbosacral region (principal); R91.8 Other nonspecific abnormal finding of lung field
CPT/HCPCS: 36415; 72072; 72110; 72170; 80053; 81374; 85025; 85652; 86140; 86200; 86431; 86480; 86704; 86803; 87340; G0463

== ENCOUNTER → 2021-02-12 | Outpatient (CLI) | payer OTHER ==
--- NOTE | 2021-02-12 09:41 | REP ---
INDICATION: MINH CAROTID OCCLUSION, STENOSIS. COMPARISON: 11/30/2018. TECHNIQUE: Bilateral carotid artery duplex ultrasound. FINDINGS: Peak flow velocities: Right left Internal carotid artery 103.5 cm/sec 148.1 cm/sec Int. Carotid diastolic 21.4 cm/sec 14.8 cm/sec External carotid artery 141.6 cm/sec 93.3 cm/sec Common carotid artery 77.6 cm/sec is 97.2 cm/sec ICA-CCA ratio 1.3 1.5 There is a is a small focal plaque in the left ICA. Otherwise, no atheromatous plaque is identified. Peak flow velocities are normal except for mildly elevated peak flow velocity in the left ICA. There are no stenoses except in the left ICA where there is 50-69% narrowing, not hemodynamically significant. There is antegrade flow in the vertebral arteries bilaterally. IMPRESSION: 50-69% stenosis in the left ICA, not hemodynamically significant. Otherwise, no stenoses. <Electronically signed by Luis Tompkins > 02/12/21 0937
== END ==
LOC: M RAD 08:49
PROVIDERS: ATTEND Physician Assistant
DX: I65.23 Occlusion and stenosis of bilateral carotid arteries (principal)

== ENCOUNTER → 2021-08-08 | Outpatient (REF) | payer OTHER ==
[~2021-08-08] MED LIST changes: +OMEP40CA4 PO; -OMEP40CA97 PO
== END ==
LOC: M LAB REF 17:43
PROVIDERS: ATTEND Nurse Practitioner Family
DX: E83.42 Hypomagnesemia (principal)